=== PATIENT | female | born 1980 | race Caucasian/White ===

== ENCOUNTER 2023-09-18 05:38 | Observation (INO) | payer OTHER, SELFPAY ==
[2023-09-17 21:55] VITALS: BP 126/75
[2023-09-18] VITALS (9 sets, daily range): BP systolic 100–120; BP diastolic 53–83; BMI 24.3; BMI 23.1
--- NOTE | 2023-09-18 00:43 | ED.GENMED ---
History of Present Illness
<BEENA Pierce - Last Filed: 09/18/23 04:20>
General
Chief Complaint: Abdominal Pain
Source: patient
Exam Limitations: none
Time Seen by Provider: 09/18/23 00:17
Nursing documentation reviewed up to this point in time: agreed with
Travel History
Have you had any contact with someone who has COVID-19?: No
Do you have any symptoms of coronavirus? Fever > 100 degrees, chills, cough, shortness of breath, sore throat, loss of taste or smell, muscle aches, or headache?: No
History of Present Illness
History of Present Illness:
This is a 42 year old female with history of HTN, kidney stones, GERD, IBS who presents to the ED for complaint of sudden onset abdominal pain x8 hours. She was taking a nap around 5:00pm and was woken up with sudden sharp diffuse abdominal pain.
She describes the pain as wearing a 'tight band' around her abdomen. She had a sudden urge to have a bowel movement followed by near syncope and diaphoresis. She states she had hard pebble like stools, followed by loose stools and bloody mucus. She
had about 4 episodes of vomiting and has dry heaves while in the ED. Her abdominal pain has become more epigastric radiating to her back. She has associated nausea. She denies chest pain/pressure, headache, shortness of breath, bloody emesis,
fevers, or chills. She denies medical history of CAD, atherosclerotic disease, or ACS.
Past History
<BEENA Pierce - Last Filed: 09/18/23 04:20>
Past History
ED Past Medical History: None
ED Past Surgical History: Other (Bilateral inguinal herniorrhaphy at age 2)
Social History
Tobacco: Non-smoker
Drug: None
Employment: Employed
Review of Systems
<BEENA Pierce - Last Filed: 09/18/23 04:20>
Review of Systems
Allergies reviewed?: Yes
All Other Systems: Not applicable
Constitutional: Reports no symptoms
EENT: Reports no symptoms
Respiratory: Reports no symptoms
Cardiac: Reports no symptoms
ABD/GI: Reports abdominal pain, nausea, vomiting, diarrhea and bloody stools
: Reports no symptoms
Musculoskeletal: Reports no symptoms
Skin: Reports no symptoms
Neurological: Reports no symptoms
Endocrine: Reports no symptoms
Hematologic/Lymphatic: Reports no symptoms
Psychiatric: Reports no symptoms
Phy Exam
<BEENA Pierce - Last Filed: 09/18/23 04:20>
General Physical Exam
General Presentation: well appearing and mild distress
General Skin: warm and dry
General Habitus: normal
General Mental: alert
General Hydration: appears well hydrated
ENT Exam
ENT Exam: EOMI, pharynx normal, neck supple and normocephalic
Eye Exam
Eye Exam: PERRL, cornea clear and conjunctiva normal
Cardiovascular Exam
Cardiovascular Exam: regular rate/rhythm, no edema, no murmur and normal peripheral pulses
Pulmonary Exam
Pulmonary Exam: lungs clear, no respiratory distress, no rales, no crackles, no rhonchi, no stridor, no wheezing and no cough
Gastrointestinal Exam
Gastrointestinal Exam: normal bowel sounds, soft, no organomegaly, no pulsatile mass, non distended, no cva tenderness and guarding
Palpation: generalized: Severe tenderness
Auscultation of Abdomen: normal
Neurological Exam
Neurological Exam: alert, oriented x3, no motor deficits and speech normal
Musculoskeletal Exam
Musculoskeletal Exam: full ROM and no edema
Skin Exam
Skin Exam: normal color, warm/dry, no rash and no petechia
Psychiatric Exam
Psychiatric Exam: normal mood/affect
Course
<BEENA Pierce - Last Filed: 09/18/23 04:20>
Orders/Labs/Results
Orders:
Orders
09/18/23 00:40
Cardiac Monitoring- Treatment ONCE
09/18/23 00:41
Electrocardiogram (*1) Urgent
Reason for Study: Abdominal Pain
CT Abd/pelvis W Iv Cont Urgent
Comment:
Reason For Exam: gen abd pain, N/V/D, bloody stools
EKG- Treatment ONCE
09/18/23 00:42
0.9% Sodium Chloride 1000 ml [Nss] 1,000 ml IV BOLUS
Ondansetron Injectable [Zofran] 4 mg IV NOW STA
09/18/23 01:04
Morphine Sulfate 4 mg IV NOW STA
09/18/23 01:33
Complete Blood Count/With Diff Urgent
Comprehensive Metabolic Panel Urgent
Lactic Acid Urgent
Lipase Urgent
09/18/23 03:20
Encourage PO Hydration-Treatme ONCE
09/18/23 04:10
0.9% Sodium Chloride 1000 ml [Nss] 1,000 ml IV 250 mls/hr
Morphine Sulfate 4 mg IV NOW STA
Ondansetron Injectable [Zofran] 4 mg IV NOW STA
Abnormal Lab Results
09/18/23
01:33
WBC 14.4 H 10^3/uL
(4.8-10.8)
RBC 4.13 L 10^6/uL
(4.20-5.40)
MCH 32.4 H pg
(27.0-31.0)
MPV 10.6 H fL
(7.4-10.4)
Abs Immat Gran (auto) 0.1 H 10^3/uL
(0-0.05)
Absolute Neuts (auto) 11.9 H 10^3/uL
(1.4-6.5)
Absolute Monos (auto) 0.8 H 10^3/uL
(0.1-0.6)
Neutrophils % 83.0 H %
(42.2-75.2)
Lymphocytes % 10.7 L %
(20.5-51.1)
Glucose 109 H mg/dl
(70-99)
09/18/23 01:33
09/18/23 01:33
Vital Signs
Initial and Last Documented VS:
Initial Vital Signs
Temp Pulse Resp BP Pulse Ox
97.9 F 91 22 126/75 100
09/17/23 21:55 09/17/23 21:55 09/17/23 21:55 09/17/23 21:55 09/17/23 21:55
Last Documented Vital Signs
Temp Pulse Resp BP Pulse Ox
97.9 F 71 21 119/79 98
09/17/23 21:55 09/18/23 01:45 09/18/23 01:45 09/18/23 01:30 09/18/23 01:45
<Gemma Dockery, DO - Last Filed: 09/18/23 04:18>
Orders/Labs/Results
Orders:
Orders
09/18/23 00:40
Cardiac Monitoring- Treatment ONCE
09/18/23 00:41
Electrocardiogram (*1) Urgent
Reason for Study: Abdominal Pain
CT Abd/pelvis W Iv Cont Urgent
Comment:
Reason For Exam: gen abd pain, N/V/D, bloody stools
EKG- Treatment ONCE
09/18/23 00:42
0.9% Sodium Chloride 1000 ml [Nss] 1,000 ml IV BOLUS
Ondansetron Injectable [Zofran] 4 mg IV NOW STA
09/18/23 01:04
Morphine Sulfate 4 mg IV NOW STA
09/18/23 01:33
Complete Blood Count/With Diff Urgent
Comprehensive Metabolic Panel Urgent
Lactic Acid Urgent
Lipase Urgent
09/18/23 03:20
Encourage PO Hydration-Treatme ONCE
09/18/23 04:10
0.9% Sodium Chloride 1000 ml [Nss] 1,000 ml IV 250 mls/hr
Morphine Sulfate 4 mg IV NOW STA
Ondansetron Injectable [Zofran] 4 mg IV NOW STA
Abnormal Lab Results
09/18/23
01:33
WBC 14.4 H 10^3/uL
(4.8-10.8)
RBC 4.13 L 10^6/uL
(4.20-5.40)
MCH 32.4 H pg
(27.0-31.0)
MPV 10.6 H fL
(7.4-10.4)
Abs Immat Gran (auto) 0.1 H 10^3/uL
(0-0.05)
Absolute Neuts (auto) 11.9 H 10^3/uL
(1.4-6.5)
Absolute Monos (auto) 0.8 H 10^3/uL
(0.1-0.6)
Neutrophils % 83.0 H %
(42.2-75.2)
Lymphocytes % 10.7 L %
(20.5-51.1)
Glucose 109 H mg/dl
(70-99)
09/18/23 01:33
09/18/23 01:33
Vital Signs
Initial and Last Documented VS:
Initial Vital Signs
Temp Pulse Resp BP Pulse Ox
97.9 F 91 22 126/75 100
09/17/23 21:55 09/17/23 21:55 09/17/23 21:55 09/17/23 21:55 09/17/23 21:55
Last Documented Vital Signs
Temp Pulse Resp BP Pulse Ox
97.9 F 71 21 119/79 98
09/17/23 21:55 09/18/23 01:45 09/18/23 01:45 09/18/23 01:30 09/18/23 01:45
<BEENA Pierce - Last Filed: 09/18/23 04:20>
MDM/Problems Addressed
Differential Diagnosis Includes:
Gastroenteritis, gastritis, PUD, colitis, IBS, pancreatitis, cholecystitis
Gastroenteritis and gastritis considered due to abdominal pain with NVD, however no recent sick contacts, travel or unusual foods. PUD considered due to vomiting, but she denies any coffee ground emesis. She does not consume NSAIDs regularly and has
no risk factor for H. Pylori. Pancreatitis and cholecystitis considered due to abdominal pain. However, normal lipase and LFTs. No gallstone abnormality noted on CT scan. IBS considered due to her history, however she has extra manifestations on
history. I suspect colitis due to her symptom presentation, previous episode of colitis and CT findings consistent.
<eGmma Dockery DO - Last Filed: 09/18/23 04:18>
*Radiology
Radiology exam reviewed: radiology read reviewed
*Pulse Oximetry
Patient hypoxic: no
*EKG
Interpreted by ED Provider?: Yes
Interpretation: abnormal (I suspect limb lead reversal with severe rightward axis, otherwise normal sinus rhythm, no ST-T wave abnormalities.)
Comparison EKG: no comparison EKG present
Rate: normal
Rhythm: sinus
Interval: normal interval
QRS Pattern: normal QRS
Ischemia: no ischemia
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
Rate: normal
Interpretation: normal
Rhythm: sinus
*Critical Care Note
Total Time (30-74mins, 75-104mins- exclusive of procedures): Not Applicable
ED Attending Note
<BEENA Pierce - Last Filed: 09/18/23 04:20>
-
Portions of this chart may have been created with voice recognition software.� Occasional wrong word or��sound alike� substitutions may have occurred due to the inherent limitations of voice recognition software.
<Gemma Dockery, DO - Last Filed: 09/18/23 04:18>
ED Attending Note
Patient seen and examined by attending physician: Yes
I performed the substantive portion of visit, reviewed & personally made and approve the management plan that is documented in note by myself or EDY.: Yes
I performed a history and physical exam of patient and discussed management with resident, I reviewed resident's note and agree with documented findings and plan of care.: Yes
ED Attending Note:
This is a 42-year-old woman with history of hypertension, GERD, irritable bowel syndrome with prior hospitalization 2019 for treatment of E. coli colitis.
She complains of somewhat abrupt onset of moderate to severe generalized lower abdominal pain, crampy in nature feeling that she needed to pass a bowel movement. Abdominal pain began around 5 PM tonight and with abrupt onset of lower abdominal
crampy pain she also had an episode of near syncope which she describes as a 'vasovagal' episode where she became lightheaded, diaphoretic while sitting on the toilet. She did not lose consciousness nor fall. She proceeded to pass several small
soft hard stools that progressed to soft/pasty stool and then passed small amount of bloody mucoid material. Symptoms progressed to nausea and multiple episodes of dry heaves. She continues with generalized crampy abdominal pain, intermittent
nausea, dry heaves.
She has had no further diarrhea nor bloody stools. She denies hematemesis. She admits to intermittent chills but does not believe she has had a fever.
No close contacts with similar symptoms, no recent travel nor recent antibiotic use.
She denies dysuria and urgency and or hematuria.
She denies risk of , has IUD in place.
GENERAL: 42-year-old woman appears her stated age, bright and alert, pleasant, appears mildly uncomfortable. Vital signs reviewed, within normal limits. is accompanying.
EYE: anicteric
NECK: Supple, nontender, no meningismus, no significant adenopathy.
ENT: oral mucosa is moist. No rhinorrhea.
CARDIAC: Regular rate and rhythm. no murmur.
LUNGS: Clear breath sounds bilaterally, no acute respiratory distress, no wheezes/rales/rhonchi
ABDOMEN: Soft, nondistended, moderate generalized tenderness throughout the abdomen without rebound or guarding nor rigidity, no palpable masses, no cvat. normoactive BS.
NEUROLOGICAL: Alert and oriented x3, no focal neuro deficits.
SKIN: Warm and dry, normal color, skin intact. No rash.
MUSCULOSKELETAL: No C/C/E. peripheral pulses are full and equal b/l. No palpable tenderness.
PSYCH: Normal and appropriate interaction.
Concern for acute gastroenteritis either viral versus foodborne, concern for exacerbation of irritable bowel syndrome. Other consideration is small bowel obstruction, less likely ischemic bowel, inflammatory bowel disease.
Will check labs including lactic acid, initiate IV fluids and medicate for pain and nausea.
Will check CT abdomen pelvis with IV contrast.
09/18/2023 0413 AM
CAT scan shows acute colitis with moderate bowel wall thickening descending to sigmoid colon. No bowel obstruction. No free fluid nor free air.
Patient has had resolution of vomiting/dry heaves after an IV dose of Zofran but continues with moderate intermittent crampy lower abdominal pain. She is had no hematochezia nor diarrhea since arrival to the ED but continues with moderate mid to
lower abdominal tenderness to palpation.
Labs show mildly elevated white blood cell count of 14.4. Chemistries are unremarkable as is lactic acid.
She is unable to tolerate oral fluids due to return of significant lower abdominal pain.
Due to intractable pain, will continue IV fluids, continue IV pain medication and will plan to admit to hospitalist service.
Discharge Plan
Departure
Prescriptions:
No Action
celecoxib 200 MG capsule
200 mg PO DAILYPRN PRN (Reason: moderate-severe pain)
spironolactone 50 MG tablet
100 mg PO QPM
duloxetine 30 MG capsule,delayed release(DR/EC)
30 mg PO QPM
L.acidoph, paracasei,B. lactis 1 EACH capsule
1 ea PO QPM
alum-mag hydroxide-simeth [Mag-Al Plus] 30 ML suspension
30 ml PO QIDPRN PRN (Reason: indigestion) Qty: 26 0RF
cyclobenzaprine 10 MG tablet
10 mg PO TIDPRN PRN (Reason: muscle spasm) Qty: 30 0RF
Referrals:
Lux Rubio MD [Family Provider] -
Interventions
Interventions:
*Risk Screen - Suicide Last Done: 09/17/23 21:55
*General Assessment Last Done: 09/17/23 21:55
*Neglect/Abuse Screening Last Done: 09/17/23 21:55
*ED COVID-19 Vaccine History Last Done: 09/18/23 01:40
CN-Bocbgg-Byesptnclx Assessment Last Done: 09/18/23 01:40
Discharge Date and Time
Print Language: ROMANIAN
[2023-09-18] MEDS: ZOFRAN 4 MG IV ×3 (01:39→20:41)
[2023-09-18] MEDS: MORPHINE SULFATE 4 MG IV ×2 (01:39→04:52)
[2023-09-18] MEDS: NSS 1000 IV ×2 (01:39→05:00)
[2023-09-18 01:40] LABS: % Basophils 0.3 % (0-2); % Eosinophils 0.2 % (0-6); % Immature Granulocytes 0.3 % (0-0.5); % Lymphocytes 10.7 % (20.5-51.1); % Monocytes 5.5 % (1.7-9.3); Absolute Immature Granulocytes 0.1 10^3/uL (0-0.05); Absolute Lymphocytes 1.5 10^3/uL (1.2-3.4); Absolute Monocytes 0.8 10^3/uL (0.1-0.6); Absolute Neutrophils 11.9 10^3/uL (1.4-6.5); Hematocrit 38.2 % (37.0-47.0); Hemoglobin 13.4 g/dL (12.0-16.0); Mean Corp Hgb Conc. 35.1 g/dL (33.0-37.0); Mean Corpuscular Hgb 32.4 pg (27.0-31.0); Mean Corpuscular Volume 92.5 fL (81.0-99.0); Mean Platelet Volume 10.6 fL (7.4-10.4); Nucleated Red Blood Cells % 0 %; Platelet Count 260 10^3/uL (130-400); Red Blood Cell Count 4.13 10^6/uL (4.20-5.40); Red Cell Dist. Width 12.5 % (11.5-14.5); White Blood Cell Count 14.4 10^3/uL (4.8-10.8)
[2023-09-18 01:53] LABS: Lactic Acid 0.8 mmol/L (0.7-2.0)
[2023-09-18 01:54] LABS: ALT (SGPT) 21 U/L (0-35); AST (SGOT) 22 U/L (14-36); Alkaline Phosphatase 73 U/L (38-126); Blood Urea Nitrogen 16 mg/dl (7-17); Calcium 9.4 mg/dl (8.4-10.2); Carbon Dioxide 29 mmol/L (22-30); Chloride 105 mmol/L (98-107); Glucose 109 mg/dl (70-99); Lipase 97 U/L (23-300); Potassium 4.3 mmol/L (3.5-5.1); Sodium 138 mmol/L (135-145); Total Bilirubin 0.2 mg/dl (0.2-1.3); Total Protein 6.4 g/dl (6.3-8.2); eGFR > 60.00
--- NOTE | 2023-09-18 04:32 | HPS.HSE ---
Family Physician
-
Family Physician: Lux Rubio MD
Chief Complaint
-
Abdominal pain and diarrhea
History of Present Illness
This is a 42-year-old female with past medical history who hypertension, prior E. coli colitis, irritable bowel syndrome who presents to the emergency department with acute onset of diffuse bilateral lower quadrant abdominal pain starting at around
5 PM the evening of coming to the emergency department.
Patient reported that she was arousing from sleep with this abdominal pain. She felt constipated and when she tried to have a bowel movement she had worsening of the pain. Ultimately she started vomiting. Then she started having small amounts of
loose stool which accompanied by mucus and blood. She reports 'passing out' multiple times. She denied having fevers or chills. She has no known sick contact. She had no recent travels. She has not been on any antibiotics recently. She is not
otherwise immunocompromised.
Patient with that she had a colonoscopy a year ago which showed some inflammation but was not consistent with definite inflammatory bowel disease. She reports chronic irritable bowel symptoms since adolescence.
Denies any recent changes in food intake or appetite.
In the ED she was afebrile, hemodynamically stable and in moderate distress due to abdominal pain. She had leukocytosis to 14,000, normal hemoglobin and platelet count. Chemistries were all within normal limits. CT of the abdomen pelvis shows
moderate wall thickening in the descending and sigmoid colon compatible with colitis.
Medical History
Past Medical History
Past Medical History: Reports HTN
Past Surgical History: Reports None
Social History
Tobacco: Non-smoker
Alcohol: None
Drug: None
Personal: Partner
Living: With Family
Family History
Family History: Not pertinent
Allergies / Home Medications
Allergies reflects when Allergies were last updated in [facility].
Home Medications with original date entered in [facility]
Allergy/Medication List:
Allergies
Allergy/AdvReac Type Severity Reaction Status Date / Time
No Known Allergies Allergy Verified 09/17/23 21:55
Home Medications
Concerta 36 mg PO M-F
Pristiq 25 mg PO M-F
spironolactone 50 mg tablet 100 mg PO QPM 04/27/19
Review of Systems
-
History Source: Patient
Constitutional: Reports No Symptoms
EENT: Reports No Symptoms
Respiratory: Reports No Symptoms
Cardiac: Reports No Symptoms
Abdomen/GI: Reports Abdominal Pain, Vomiting and Bloody Stools
: Reports No Symptoms
Musculoskeletal: Reports No Symptoms
Skin: Reports No Symptoms
Neurological: Reports No Symptoms
Endocrine: Reports No Symptoms
Hematologic/Lymphatic: Reports No Symptoms
Psych: Reports No Symptoms
Physical Exam
Vital Signs
Vital Signs
Temp Pulse Resp BP Pulse Ox
97.9 F 71 21 119/79 98
09/17/23 21:55 09/18/23 01:45 09/18/23 01:45 09/18/23 01:30 09/18/23 01:45
Physical Exam
General: Well Developed, Well Nourished and Appears in Distress
HEENT: NormoCephalic, Anicteric, Atraumatic, PERRLA and Neck Nontender
Respiratory: Clear
Cardiac: S1/S2 and Regular Rhythm
Breast: Deferred by me
GI: Soft, Non Distended, Normal Bowel Sounds and Tender
Rectal: Deferred by Provider
Genito-urinary: Deferred by me
Musculoskeletal: No Clubbing, No Cyanosis and No Edema
Neuro: AO x 3
Hematologic/Lymphatic: No Lymphadenopathy
Psych: Calm
Laboratory Results
-
09/18/23 01:33
09/18/23 01:33
Laboratory Results
Lactic Acid 0.8 mmol/L (0.7-2.0) 09/18/23 01:33
Total Bilirubin 0.2 mg/dl (0.2-1.3) 09/18/23 01:33
AST 22 U/L (14-36) 09/18/23 01:33
ALT 21 U/L (0-35) 09/18/23 01:33
Alkaline Phosphatase 73 U/L (38-126) 09/18/23 01:33
Lipase 97 U/L (23-300) 09/18/23 01:33
Data Reviewed
-
CT Scan: Report Reviewed by me
Lab Data: Labs Reviewed by me
Old Records: Reviewed
Impression/Plan
-
IMPRESSION:
PLAN:
1. Colitis - Patient with acute onset abdominal pain followed by vomiting and bloody/mucus bowel movement. No voluminous diarrhea. Has some tenesmus. Non-toxic appearing and hemodynamically stable. Leukocytosis to 14K. No recent risk factors
such as abx use, hospitalizations, travels or sick contacts. No known exposures. Symptoms c/w infectious vs inflammatory colitis. Reports colonoscopy 1 year ago with some inflammation but no diagnosis of IBD.
- admit to obs/med-surg
- NPO, IV fluids, antiemetics and pain control
- pending stool studies including cdiff, stool wbc and cultures
- no indication for abx at this time
2. HTN
- continue spironolactone
DVT PPX - lovenox sq
Full Code
[2023-09-18] MEDS: LR 1000 IV ×2 (09:19→17:15)
--- NOTE | 2023-09-18 11:00 | W.PN.UPDATE ---
Update Note
Progress Note Update
Seen and examined independent of overnight physician. Patient states regimen abdominal cramping. No loose bowel movement so far since admission to the hospital. Denies any nausea or vomiting. Would like to tolerate some liquids.
General�no acute distress
Cardiac S1-S2 regular rate rhythm
Lungs clear to auscultation anteriorly
Abdomen hypoactive bowel sounds, nondistended, tender to palpation left upper and lower quadrant and periumbilical region. No guarding or rigidity.
Extremities no edema
1. Colitis - Patient with acute onset abdominal pain followed by vomiting and bloody/mucus bowel movement. No voluminous diarrhea. Has some tenesmus. Non-toxic appearing and hemodynamically stable. Leukocytosis to 14K. No recent risk factors
such as abx use, hospitalizations, travels or sick contacts. No known exposures. Symptoms c/w infectious vs inflammatory colitis. Reports colonoscopy 1 year ago with some inflammation but no diagnosis of IBD. Denies any outside food on Tuesday.
- IV fluids, antiemetics and pain control
- pending stool studies including cdiff, stool wbc and cultures
- no indication for abx at this time
-Start on clears and advance as tolerated.
2. HTN
- continue spironolactone
3. ADHD
-Cont concentra
DVT PPX - lovenox sq
Full Code
[2023-09-18] MEDS: PRISTIQ PO (12:26)
[2023-09-18] MEDS: MYLICON 80 MG PO (14:03)
[2023-09-18] MEDS: ROXICODONE 5 MG PO ×2 (14:10→18:08)
--- NOTE | 2023-09-18 16:19 | CM ---
Met with patient. Reviewed observation letter. Patient reports had Brain injury about 2 years ago and that is why they have [employer] insurance. She was independent at home. They live in 2 level home but having 2nd floor remodeled so
live on first floor. No DME or history of VNA.
PCP: Dr. Lux Rubio
Pharmacy: [facility] in [place]
PLAN: home no needs
[2023-09-18] MEDS: ALDACTONE 100 MG PO (17:15)
[2023-09-18] MEDS: LOVENOX 40 MG SC (17:15)
[2023-09-18] MEDS: TYLENOL 650 MG PO (20:41)
[2023-09-19] MEDS: LR 1000 IV (02:36)
[2023-09-19 05:53] LABS: % Basophils 0.4 % (0-2); % Eosinophils 3.3 % (0-6); % Immature Granulocytes 0.4 % (0-0.5); % Monocytes 9.1 % (1.7-9.3); % Neutrophils 56.8 % (42.2-75.2); Absolute Eosinophils 0.2 10^3/uL (0-0.7); Absolute Lymphocytes 2.1 10^3/uL (1.2-3.4); Absolute Monocytes 0.6 10^3/uL (0.1-0.6); Hematocrit 33.6 % (37.0-47.0); Hemoglobin 11.6 g/dL (12.0-16.0); Mean Corp Hgb Conc. 34.5 g/dL (33.0-37.0); Mean Corpuscular Hgb 32.2 pg (27.0-31.0); Mean Corpuscular Volume 93.3 fL (81.0-99.0); Mean Platelet Volume 10.5 fL (7.4-10.4); Nucleated Red Blood Cells % 0 %; Platelet Count 214 10^3/uL (130-400); Red Cell Dist. Width 12.6 % (11.5-14.5)
[2023-09-19] MEDS: MYLICON 80 MG PO (06:00)
[2023-09-19 06:27] LABS: ALT (SGPT) 17 U/L (0-35); AST (SGOT) 19 U/L (14-36); Alkaline Phosphatase 51 U/L (38-126); Blood Urea Nitrogen 6 mg/dl (7-17); Calcium 8.6 mg/dl (8.4-10.2); Carbon Dioxide 28 mmol/L (22-30); Chloride 107 mmol/L (98-107); Estimated Creatinine Clearance 103 ml/min; Glucose 89 mg/dl (70-99); Sodium 138 mmol/L (135-145); Total Bilirubin 0.2 mg/dl (0.2-1.3); Total Protein 5.3 g/dl (6.3-8.2); eGFR > 60.00
[2023-09-19 07:00] VITALS: BP 107/67
[2023-09-19] MEDS: ROXICODONE 5 MG PO ×2 (08:41→16:01)
[2023-09-19] MEDS: ZOFRAN 4 MG IV (08:42)
[2023-09-19] MEDS: PRISTIQ 25 MG PO (08:42)
--- NOTE | 2023-09-19 11:31 | W.PN.HOSP.TC ---
Addendum entered and electronically signed by Juan Garzon DO 09/19/23 15:13:
No callback so far from patient's outpatient flight/transport nurse.
She pulled up her reports from previous EGD and colonoscopy from last year on her cell phone via the portal. I reviewed results of the EGD and colonoscopy which were mostly unremarkable. Gastritis was noted on EGD. Biopsy results were negative
for both upper and lower endoscopy. No evidence of H. pylori. She is not on PPI at home and claims that she had adverse effect to omeprazole in the past but cannot expand on that. Does not remember the specifics.
Tolerated low residue diet. Appears stable for discharge. Recommend close outpatient follow-up with her flight/transport nurse. Recommend follow-up with PCP. Can check CBC in 1 week to follow-up on her hemoglobin drop which I suspect is likely
hemodilution due to IV fluid administration. Hemoglobin was normal on arrival.
Discharge instructions provided to patient. Discussed with RN.
Original Note:
Today's Communication/Plan
-
Try to obtain outpatient records
Advance diet as tolerated
Assessment / Plan
Assessment / Plan
Gen-AAOx3, NAD
HEENT-NC, AT, anicteric, clear oral mm
Neck-supple
CV-reg, no M, +S1/S2
Lungs-clear B/L
Abd-soft, mild left-sided abdominal tenderness, no rebound or guarding
Ext-no edema
Musculoskeletal-no cyanosis, clubbing
Skin-warm and dry
Neuro-grossly non-focal
Psych-calm, cooperative
Acute colitis -infectious versus inflammatory versus other. No further diarrhea in the hospital. No stool specimens collected. Tolerating full liquid diet, advance to low residue as tolerated.
I left a message for patient's outpatient flight/transport nurse to call me back, Dr Key. She apparently has had intestinal issues for many years. Has had multiple endoscopies and colonoscopies. Reportedly had a colonoscopy last
year, she does not know the results. She was told there is inflammation.
Her GI symptoms this time started on September 16 with constipation and subsequent abdominal pain. Subsequently had some vomiting and diarrhea that resolved. She normally suffers from loose stools and not constipation. Denies any medication
changes at home.
Essential hypertension -stable.
ADHD
Full code
Anticipated Discharge: Within 24 hours
Subjective/Interval History
-
Date of Service: September 19, 2023
Patient seen and examined. Had nausea earlier this morning, abdominal pain, now resolved. Feeling better.
Objective Data
-
Labs:
Laboratory Results
09/19/23
05:37
WBC 7.0
Hgb 11.6 L
Hct 33.6 L
Plt Count 214
Sodium 138
Potassium 4.0
Chloride 107
Carbon Dioxide 28
BUN 6 L
Creatinine 0.6
Glucose 89
Calcium 8.6
Total Bilirubin 0.2
AST 19
ALT 17
Alkaline Phosphatase 51
Vital Signs:
Vital Signs
Temp Pulse Resp BP Pulse Ox
98.6 F 64 16 107/67 98
09/19/23 07:00 09/19/23 07:00 09/19/23 07:00 09/19/23 07:00 09/19/23 07:00
I&O
09/18/23 09/19/23 09/20/23
06:59 06:59 06:59
Intake Total 2039
Balance 2039
Review of Systems
-
History Source: Patient
All other systems: Reviewed and negative
[2023-09-19] MEDS: LR IV (13:47)
--- NOTE | 2023-09-19 14:46 | CM ---
Case management following for d/c planning
Chart reviewed and met with pt
Admitted with acute colitis
Reports continues to have discomfort
CM will follow for d/c needs
Plan - anticipate home no needs
[2023-09-19 15:00] VITALS: BP 107/67
--- NOTE | 2023-09-19 15:10 | W.DS.TRANS ---
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
-
Discharge Instructions:
Discharge Diagnosis/Procedures Acute colitis
Diet Low Residue
Activity As tolerated
Driving Restrictions As prior to admission
Bathing Restrictions None
Blood Work CBC in 1 week with your primary care doctor
Instructions:
Stand-Alone Forms:
Changes to Home Medications: No
Discharge Medications:
DC Medications w/original date entered in [facility]
spironolactone 50 mg tablet 100 mg PO QPM Blood Pressure 04/27/19
Vitamin D3 Supplement 09/18/23
desvenlafaxine succinate 25 mg tablet,extended release 24 hr (Pristiq) 25 mg PO DAILY Depression 09/18/23
methylphenidate HCl 36 mg tablet,extended release 24 hr (Concerta) 36 mg PO DAILY ADHD 09/18/23
Home Medication Changes
Pending Results: No
== END 2023-09-19 18:27 | disposition home or self-care (01) ==
LOC: 3 WEST ACU 05:38
PROVIDERS: Hospitalist; ADMITTING PHYSICIAN Internal Medicine; ATTENDING PHYSICIAN Hospitalist; EMERGENCY PHYSICIAN Emergency Medicine; FAMILY PHYSICIAN Family Medicine
DX: K52.9 Noninfective gastroenteritis and colitis, unspecified (principal); R10.9 Unspecified abdominal pain; I10 Essential (primary) hypertension; K21.9 Gastro-esophageal reflux disease without esophagitis; R55 Syncope and collapse; R61 Generalized hyperhidrosis; D25.9 Leiomyoma of uterus, unspecified; R10.13 Epigastric pain; R11.2 Nausea with vomiting, unspecified; D72.829 Elevated white blood cell count, unspecified; Z87.442 Personal history of urinary calculi
CPT/HCPCS: 74177; 80053; 83605; 83690; 85025; 93005; 96361; 96374; 96375; 96376; 99285; 99406; G0378; Q9967